=== PATIENT | female | born 1960 ===

== ENCOUNTER 2018-09-08 23:10 | Emergency (ER) | payer MEDICAID ==
[2018-09-08 23:10] VITALS: BMI 22.9
[2018-09-09] MEDS ORDERED: Aluminum Hydroxide/Magnesium Hydroxide Susp (30 mL) PO STA (00:25)
[2018-09-09] MEDS ORDERED: Aluminum Hydroxide/Magnesium Hydroxide Susp (30 mL) ONE (00:34)
[2018-09-09 00:43] LABS: BASO % 0.4 % (0.0-2.0); EOS # 0.1 K/uL (0.0-0.7); EOS % 1.9 % (0.0-4.0); HEMOGLOBIN 12.3 g/dL (11.0-16.0); LYMPH # 0.6 K/uL (1.0-4.3); LYMPH % 17.1 % (20.0-40.0); MEAN CELL VOLUME 93.2 fL (81.0-99.0); MEAN CORPUSCULAR HEMOGLOBIN 31.4 pg (27.0-31.0); MEAN CORPUSCULAR HGB CONC 33.7 g/dL (33.0-37.0); MEAN PLATELET VOLUME 10.2 fL (7.2-11.7); MONO # 0.3 K/uL (0.0-0.8); MONO % 7.8 % (0.0-10.0); NEUT # 2.5 K/uL (1.8-7.0); NEUT % 72.8 % (50.0-75.0); NRBC % 0.1 % (0.0-2.0); RBC 3.9 Mil/uL (3.80-5.20); RED CELL DISTRIBUTION WIDTH 12.5 % (11.5-14.5); WHITE BLOOD COUNT 3.4 K/uL (4.8-10.8)
[2018-09-09 00:57] LABS: SQUAMOUS EPITHIAL 2 /hpf (0-5); URINE BILIRUBIN NEGATIVE (NEGATIVE); URINE BLOOD NEGATIVE (NEGATIVE); URINE CLARITY Clear (Clear); URINE COLOR Yellow (YELLOW); URINE GLUCOSE (UA) NORMAL (Normal); URINE LEUKOCYTE ESTERASE 2+ Leu/uL (Negative); URINE PROTEIN NEGATIVE (NEGATIVE); URINE UROBILINOGEN NORMAL mg/dL (0.2-1.0)
[2018-09-09 00:59] LABS: ALB/GLOB RATIO 1.4 (1.0-2.1); ALBUMIN 4.4 g/dL (3.5-5.0); ALT/SGPT 34 U/L (9-52); AST/SGOT 34 U/L (14-36); BLOOD UREA NITROGEN 22 mg/dL (7-17); CALCIUM 8.9 mg/dl (8.6-10.4); GFR NON-AFRICAN AMERICAN > 60; LIPASE 167 U/L (23-300)
[2018-09-09 02:05] VITALS: BP 109/68; PULSE 64; RESP 18; TEMP 98.3; O2SAT 99
--- NOTE | 2018-09-09 02:54 | C.PDOC ---
History Of Present Illness 58 year old female, whose past medical history includes GERD, presents to the ED for evaluation of epigastric abdominal pain and nausea which began after having dinner last night. Patient took Omeprazole without relief. She denies fever, chills, vomiting and diarrhea. Time Seen by Provider: 09/09/18 00:22 Chief Complaint (Nursing): Abdominal Pain History Per: Patient History/Exam Limitations: no limitations Onset/Duration Of Symptoms: Hrs Current Symptoms Are (Timing): Still Present Location Of Pain/Discomfort: Epigastric Radiation Of Pain To:: None Quality Of Discomfort: "Pain" Associated Symptoms: Nausea. denies: Fever, Chills, Vomiting, Diarrhea Additional History Per: Patient Abnormal Vaginal Bleeding: No Past Medical History Reviewed: Historical Data, Nursing Documentation, Vital Signs Vital Signs: Last Vital Signs Temp 98.3 F 09/09/18 02:02 Pulse 64 09/09/18 02:02 Resp 18 09/09/18 02:02 BP 109/68 09/09/18 02:02 Pulse Ox 99 09/09/18 02:02 - Medical History PMH: Hypercholesterolemia, Osteoporosis Surgical History: Appendectomy, Family History: States: Unknown Family Hx - Social History Hx Alcohol Use: No Hx Substance Use: No - Immunization History Hx Tetanus Toxoid Vaccination: Yes Hx Influenza Vaccination: No Hx Pneumococcal Vaccination: No Review Of Systems Constitutional: Negative for: Fever, Chills Cardiovascular: Negative for: Chest Pain Respiratory: Negative for: Shortness of Breath Gastrointestinal: Positive for: Nausea, Abdominal Pain (epigastric ). Negative for: Vomiting, Diarrhea Physical Exam - Physical Exam Appears: Non-toxic, No Acute Distress Skin: Normal Color, Warm, Dry Head: Atraumatic, Normacephalic Eye(s): bilateral: Normal Inspection, PERRL Oral Mucosa: Moist Neck: Supple Chest: Symmetrical, No Deformity, No Tenderness Cardiovascular: Rhythm Regular, No Murmur Respiratory: Normal Breath Sounds, No Rales, No Rhonchi, No Wheezing Gastrointestinal/Abdominal: Bowel Sounds (normal ), Soft, Tenderness (mild, epigastric ), No Guarding, No Rebound, Other (mid-abdominal scar due to c- section noted ) Back: No CVA Tenderness Extremity: Normal ROM, Capillary Refill (less than 2 seconds ) Neurological/Psych: Oriented x3, Normal Speech, Normal Cognition ED Course And Treatment - Laboratory Results Result Diagrams: 09/09/18 00:37 09/09/18 00:37 O2 Sat by Pulse Oximetry: 99 (on RA) Pulse Ox Interpretation: Normal Progress Note: Bloodwork and urinalysis ordered and reviewed. Maalox PO, Pepcid IVP, and Zofran IVP given. On reassessment, patient is resting comfortably, showing no signs of distress and reports an improvement in her pain. Patient is tolerating PO intake and her abdomen is soft/nontender. Patient is stable for discharge. Patient is advised to follow up with her PMD within 1-2 days for further evaluation and understands to return if symptoms persist or worsen. Disposition Counseled Patient/Family Regarding: Diagnosis, Need For Followup - Disposition Referrals: [facility] at [facility] [Outside] Disposition: HOME/ ROUTINE Disposition Time: 02:51 Condition: STABLE Additional Instructions: Increase PO fluids Take medications as directed Avoid greasy foods, red meat, spicy foods, caffeine Return to ER if worse Prescriptions: Aluminum Hydroxide/Magnesium H [Maalox 30 ml] 30 ml PO TID #100 ml Famotidine [Pepcid] 20 mg PO DAILY #20 tab Instructions: Gastritis (DC) Forms: [employer] (Chinese) Print Language: HEBREW - Clinical Impression Clinical Impression: Gastritis - PA / ANIMAL CARE TAKER / Resident Statement MD/DO has reviewed & agrees with the documentation as recorded. - Scribe Statement The provider has reviewed the documentation as recorded by the Scribe (Radha Harvey) All medical record entries made by the Scribe were at my direction and personally dictated by me. I have reviewed the chart and agree that the record accurately reflects my personal performance of the history, physical exam, medical decision making, and the department course for this patient. I have also personally directed, reviewed, and agree with the discharge instructions and d isposition.
== END 2018-09-09 03:10 | disposition home or self-care (01) ==
LOC: C.ER 23:10
DX: K29.70 Gastritis, unspecified, without bleeding (principal); E78.00 Pure hypercholesterolemia, unspecified; M81.0 Age-related osteoporosis without current pathological fracture
CPT/HCPCS: 80053; 81001; 83690; 85025; 96374; 96375; 99283; J2405

== ENCOUNTER 2019-02-07 09:00 | Emergency (ER) | payer MEDICAID ==
[2019-02-07 09:00] VITALS: BMI 22.9
[2019-02-07] MEDS ORDERED: Albuterol 0.083% Inhal Sol (2.5 mg/3 mL) UD INH STA (11:37)
[2019-02-07] MEDS ORDERED: Albuterol 0.083% Inhal Sol (2.5 mg/3 mL) UD ONE (11:55)
--- NOTE | 2019-02-07 12:29 | C.PDOC ---
History Of Present Illness 58 year old female with a history of high cholesterol presents to the emergency department with complaints of body aches, chest pain, and abdominal pain for the last 3 days. Patient reports associated cough and vomiting. Patient also reports intermittent fevers and headache to the top of the head. Time Seen by Provider: 02/07/19 09:14 Chief Complaint (Nursing): Flu-like Symptoms History Per: Patient History/Exam Limitations: no limitations Onset/Duration Of Symptoms: Days (3) Current Symptoms Are (Timing): Still Present Associated Symptoms: Fever, Cough, Myalgias, Other (body aches, chest pain, abdominal pain, headache). denies: Chills, Sore Throat Past Medical History Reviewed: Historical Data, Nursing Documentation, Vital Signs Vital Signs: Last Vital Signs Temp 99.2 F 02/07/19 09:02 Pulse 100 H 02/07/19 09:02 Resp 22 02/07/19 09:02 BP 120/71 02/07/19 09:02 Pulse Ox 98 02/07/19 09:02 Primary Care Provider: Luis Judd H - Medical History PMH: Hypercholesterolemia, Osteoporosis Surgical History: Appendectomy, Family History: States: No Known Family Hx - Social History Hx Alcohol Use: No Hx Substance Use: No - Immunization History Hx Tetanus Toxoid Vaccination: Yes Hx Influenza Vaccination: No Hx Pneumococcal Vaccination: No Review Of Systems Except As Marked, All Systems Reviewed And Found Negative. Constitutional: Positive for: Fever Cardiovascular: Positive for: Chest Pain Gastrointestinal: Positive for: Abdominal Pain Musculoskeletal: Positive for: Other (body cahes) Neurological: Positive for: Headache Physical Exam - Physical Exam Appears: Non-toxic, No Acute Distress Skin: Normal Color, Warm, Dry Head: Atraumatic, Normacephalic Eye(s): bilateral: Normal Inspection, PERRL, EOMI Ear(s): Bilateral: Normal Nose: Normal Oral Mucosa: Moist Neck: Normal, Supple Chest: Symmetrical, No Tenderness Cardiovascular: Rhythm Regular, No Murmur Respiratory: No Rales, Rhonchi (scattered), No Wheezing Gastrointestinal/Abdominal: Soft, No Tenderness, No Guarding, No Rebound Extremity: Normal ROM Neurological/Psych: Oriented x3, Normal Speech, Normal Cognition ED Course And Treatment O2 Sat by Pulse Oximetry: 98 (RA) Pulse Ox Interpretation: Normal Medical Decision Making Medical Decision Making: Plan: CXR Albuterol Tylenol 975mg PO Influenza Disposition Counseled Patient/Family Regarding: Studies Performed, Diagnosis, Need For Followup - Disposition Referrals: [facility] at [facility] [Outside] Disposition: HOME/ ROUTINE Disposition Time: 12:27 Condition: IMPROVED Prescriptions: Albuterol HFA [Ventolin HFA 90 mcg/actuation (8 g)] 2 puff IH [id number] #1 inhaler Instructions: Acute Bronchitis, Adult (DC) Forms: [facility] (Georgian), Gen Discharge Inst Georgian Print Language: WOLOF - POA Present On Arrival: None - Clinical Impression Clinical Impression: Bronchitis - Scribe Statement The provider has reviewed the documentation as recorded by the Scribe Provider Attestation: All medical record entries made by the Scribe were at my direction and personally dictated by me. I have reviewed the chart and agree that the record accurately reflects my personal performance of the history, physical exam, medical decision making, and the department course for this patient. I have also personally directed, reviewed, and agree with the discharge instructions and disposition.
[2019-02-07 12:48] VITALS: BP 126/81; PULSE 91; RESP 18; TEMP 98.1
[2019-02-07 13:32] VITALS: O2SAT 98
--- NOTE | 2019-02-07 18:20 | RAD ---
Date of service: 02/07/2019 HISTORY: cough COMPARISON: No prior. TECHNIQUE: Chest PA and lateral views FINDINGS: LUNGS: No evidence of infiltrate or consolidation in the lungs PLEURA: No significant pleural effusion identified. No pneumothorax apparent. CARDIOVASCULAR: No aortic atherosclerotic calcification present. Normal cardiac size. No pulmonary vascular congestion. OSSEOUS STRUCTURES: No significant abnormalities. VISUALIZED UPPER ABDOMEN: Normal. OTHER FINDINGS: None. IMPRESSION: No active disease.
== END 2019-02-07 12:48 | disposition home or self-care (01) ==
LOC: C.ER 09:00
DX: J40 Bronchitis, not specified as acute or chronic (principal); E78.00 Pure hypercholesterolemia, unspecified; M81.0 Age-related osteoporosis without current pathological fracture